=== PATIENT | female | born 1985 | race Caucasian/White ===

== ENCOUNTER → 2016-12-21 | Outpatient (CLI) | payer MEDICAID ==
[~2016-12-21] MED LIST: B-12500 MCG PO; BIOTIN1 MG PO; DEPAKOTE500 MG PO; PRENATAL PLUS I1 TAB PO; PROBIOTIC1 EAC1 PO
== END | disposition short-term general hospital (02) ==
LOC: CLORTH 12-09 11:43 → CLCARD 09:26
DX: R00.2 Palpitations (principal); R06.00 Dyspnea, unspecified; R53.83 Other fatigue; F31.9 Bipolar disorder, unspecified; Z82.49 Family history of ischemic heart disease and other diseases of the circulatory system

== ENCOUNTER → 2016-12-23 | Outpatient (CLI) | payer MEDICAID | END | disposition short-term general hospital (02) | LOC: CLORTH 09:07 | DX: M22.2X2 Patellofemoral disorders, left knee (principal); M25.562 Pain in left knee | CPT/HCPCS: J1100; J2795 ==

== ENCOUNTER 2017-01-04 04:13 | Emergency (ER) | payer MEDICAID ==
[~2017-01-04] VITALS: Ht 165.1 cm; Wt 78.9 kg
[~2017-01-04 04:13] MED LIST changes: -B-12500 MCG PO
[2017-01-04] MEDS ORDERED: B-12500 MCG PO (04:42)
== END 2017-01-04 05:18 | disposition short-term general hospital (02) ==
LOC: ER 04:13
DX: K21.9 Gastro-esophageal reflux disease without esophagitis (principal); R00.2 Palpitations; Z88.2 Allergy status to sulfonamides

== ENCOUNTER → 2017-01-04 | Outpatient (CLI) | payer MEDICAID | END | disposition short-term general hospital (02) | LOC: CLCARD | DX: F31.9 Bipolar disorder, unspecified (principal); R10.13 Epigastric pain; R06.00 Dyspnea, unspecified; Z82.49 Family history of ischemic heart disease and other diseases of the circulatory system ==

== ENCOUNTER 2017-04-21 09:46 | Emergency (ER) | payer MEDICAID ==
[~2017-04-21] VITALS: Ht 165.1 cm; Wt 72.6 kg
[~2017-04-21 09:46] MED LIST changes: +B-12500 MCG PO
== END 2017-04-21 11:35 | disposition short-term general hospital (02) ==
LOC: ER 09:46
DX: F41.9 Anxiety disorder, unspecified (principal); F32.9 Major depressive disorder, single episode, unspecified; Z98.51 Tubal ligation status; Z88.1 Allergy status to other antibiotic agents; Z88.5 Allergy status to narcotic agent; Z88.8 Allergy status to other drugs, medicaments and biological substances